=== PATIENT | female | born 1930 | race Caucasian/White ===

== ENCOUNTER 2016-09-08 14:44 | Emergency (ER) | payer MEDICARE, OTHER ==
[~2016-09-08] VITALS: Ht 154.9 cm; Wt 77.3 kg
[2016-09-08] MEDS ORDERED: VALS160T2 PO (15:36)
[2016-09-08] MEDS ORDERED: ASPI81 PO (15:36)
[2016-09-08 16:58] VITALS: BP 132/75
== END 2016-09-08 17:37 | disposition home or self-care (01) ==
LOC: EMS 14:47
DX: J40 Bronchitis, not specified as acute or chronic (principal); I10 Essential (primary) hypertension; Z88.0 Allergy status to penicillin; Z88.5 Allergy status to narcotic agent; Z88.6 Allergy status to analgesic agent; Z88.8 Allergy status to other drugs, medicaments and biological substances; Z79.82 Long term (current) use of aspirin
CPT/HCPCS: 99283